=== PATIENT | female | born 1985 | race Caucasian/White ===

== ENCOUNTER 2020-06-29 23:51 | Emergency (ER) | payer MEDICAID ==
[~2020-06-29] VITALS: Ht 172.7 cm; Wt 99.8 kg
[2020-06-29 23:58] VITALS: Ht 172.7 cm; Wt 99.8 kg
[2020-06-30 04:30] VITALS: BP 120/78
== END 2020-06-30 04:30 | disposition home or self-care (01) ==
LOC: ED 23:51
DX: S90.31XA Contusion of right foot, initial encounter (principal); X58.XXXA Exposure to other specified factors, initial encounter; Y93.89 Activity, other specified; Y92.89 Other specified places as the place of occurrence of the external cause; Y99.8 Other external cause status
CPT/HCPCS: Q0092

== ENCOUNTER 2020-07-23 10:32 | Emergency (ER) | payer MEDICAID ==
[~2020-07-23] VITALS: Ht 172.7 cm; Wt 103.4 kg
[2020-07-23 10:40] VITALS: Ht 172.7 cm; Wt 103.4 kg
[2020-07-23 11:08] LABS: BASOPHIL % 0.5 % (0-2); PLATELET COUNT 242 x10^3mcL (130-400); RED CELL DISTRIBUTION WIDTH 12.5 % (11.5-14.5)
[2020-07-23 11:18] LABS: CALCIUM 8.3 mg/dL (8.5-10.1); CARBON DIOXIDE 25.1 mmol/L (21-32); CHLORIDE SERUM 105 mmol/L (98-107); CREATININE SERUM 0.7 mg/dL (0.6-1.0); GFR1 > 60 mL/min; GLUCOSE SERUM 134 mg/dL (74-106); POTASSIUM SERUM 3.6 mmol/L (3.5-5.1); SODIUM SERUM 139 mmol/L (136-145)
[2020-07-23 11:32] LABS: ALBUMIN 3.6 g/dL (3.4-5.0); ALKALINE PHOSPHATASE 80 U/L (46-116); ALT/SGPT 22 U/L (14-59); AST/SGOT 15 U/L (15-37); BILIRUBIN TOTAL 0.6 mg/dL (0.20-1.00); C REACTIVE PROTEIN 0.3 mg/dL (<=0.9)
[2020-07-23 11:58] LABS: ERYTHROCYTE SED RATE 10 mm/hr (0-20)
[2020-07-23 13:15] VITALS: BP 131/74
== END 2020-07-23 13:15 | disposition home or self-care (01) ==
LOC: ED 10:32
PROVIDERS: Emergency Medicine
DX: L03.115 Cellulitis of right lower limb (principal); Z90.49 Acquired absence of other specified parts of digestive tract
CPT/HCPCS: J0696; J7060; Q0092